=== PATIENT | male | born 1970 | race Caucasian/White ===

== ENCOUNTER 2017-08-29 06:19 | Day surgery (SDC) | payer BC ==
[~2017-08-29 06:19] MED LIST: Lactated Ringers 1,000 ML IV SCH
[2017-08-29] MEDS ORDERED: fentaNYL 100 MCG/2 ML SDV ONE (07:08)
[2017-08-29] MEDS ORDERED: Midazolam 1 MG/ML 2 ML SDV ONE (07:08)
[2017-08-29] MEDS ORDERED: Propofol 200 MG/20 ML SDV ONE ×2 (07:09→07:54)
[2017-08-29] MEDS ORDERED: Bupivacaine 0.25%/EPINEPHrine 1:200,000 30 ML SDV ONE (07:39)
--- NOTE | 2017-08-29 13:38 | OR ---
PREOPERATIVE DIAGNOSES: Rectal bleeding, family history of rectal cancer. POSTOPERATIVE DIAGNOSIS: Normal colonoscopic exam. PROCEDURE PROPOSED: Total flexible colonoscopy. PROCEDURE DONE: Total flexible colonoscopy. INDICATION: This is a 47-year-old gentleman, who comes in for his first colonoscopic exam. He has been off his Coumadin for a while and his INR yesterday was 1.4. TECHNIQUE: The patient was brought to the endoscopy suite, placed in left lateral decubitus position. He was sedated per MOLDING SUPERVISOR with propofol. The flexible video colonoscope was then passed transanally and under visualization advanced to the cecum. Examination revealed a normal ascending, transverse, descending, sigmoid, and rectal colon. There was no evidence of any polyps, diverticulosis, colitis, or other abnormalities, and the scope was then withdrawn. He tolerated the procedure well. FINAL IMPRESSION: 1. Normal colonoscopic exam. 2. Family history of rectal cancer. PLAN: The patient should consider a colonic surveillance every 5 years hereafter. He also has an anal tag that he is requesting to be removed. Please see a separate dictation for that. SCM: 08/29/2017 09:17:58 MODL: 08/29/2017 13:29:13 /[id number]
--- NOTE | 2017-08-29 14:13 | OR ---
PREOPERATIVE DIAGNOSIS: Large anal tag, symptomatic. POSTOPERATIVE DIAGNOSIS: Large anal tag, symptomatic. PROCEDURE PROPOSED: Excision of large external anal tag, 1.5 cm. PROCEDURE DONE: Excision of large external anal tag, 1.5 cm. CALL CENTER RECRUITER: Shannon. INDICATIONS: This is a 47-year-old gentleman with a symptomatic, problematic, large anal tag in the left lateral quadrant externally. It appears that this likely could be a source of some bleeding and is felt that it should be removed. TECHNIQUE: The patient was already sedated with propofol. After following a colonoscopy, the area was sterilely prepped with Betadine. Shannon, my college sports assistant, then retracted the buttocks and I was able to locally anesthetize the base of this polypoid mass. I then excised it with a 15 scalpel, used some battery operated cautery to obtain some hemostasis and then reapproximated the incision with a running 4-0 plain catgut suture. He tolerated the procedure well. Everything looked good and a gauze dressing was packed between the buttocks and he was taken back to day surgery in good condition. SCM: 08/29/2017 09:19:38 MODL: 08/29/2017 14:02:55 /[id number]
== END 2017-08-29 09:30 | disposition home or self-care (01) ==
LOC: VM.SDS 06:19
PROVIDERS: ATTEND Surgery
DX: K62.5 Hemorrhage of anus and rectum (principal); K64.4 Residual hemorrhoidal skin tags; F41.9 Anxiety disorder, unspecified; F32.9 Major depressive disorder, single episode, unspecified; G47.33 Obstructive sleep apnea (adult) (pediatric); E11.9 Type 2 diabetes mellitus without complications; E78.5 Hyperlipidemia, unspecified; E66.9 Obesity, unspecified; E03.9 Hypothyroidism, unspecified; F17.210 Nicotine dependence, cigarettes, uncomplicated; Z80.0 Family history of malignant neoplasm of digestive organs; Z68.37 Body mass index [BMI] 37.0-37.9, adult; Z79.01 Long term (current) use of anticoagulants; Z79.899 Other long term (current) drug therapy; Z88.0 Allergy status to penicillin
CPT/HCPCS: 36415; 45378; 82962; 85610; J2250; J2704; J3010; J7120

== ENCOUNTER 2019-03-06 22:33 | Emergency (ER) | payer BC ==
[2019-03-06] MEDS ORDERED: Ondansetron 4 MG/2 ML SDV IVPUSH ONE (22:47)
[2019-03-06] MEDS ORDERED: GI Cocktail Oral Solution 30 ML PO ONE (22:47)
[2019-03-06] MEDS ORDERED: Sodium Chloride 0.9% 10 ML Syringe FLUSH PRN (22:47)
[2019-03-06 23:19] LABS: CHLORIDE,CL 98 mmol/L (98-107); SODIUM,NA 136 mmol/L (136-145)
[2019-03-06 23:20] LABS: ANION GAP 18.3 mmol/L (10-20)
--- NOTE | 2019-03-06 23:55 | EDM.PDOC ---
ED HPI GENERAL MEDICAL PROBLEM - General Chief Complaint: General Stated Complaint: CHEST PAIN Time Seen by Provider: 03/06/19 22:40 Source of Information: Reports: Patient History Limitations: Reports: No Limitations, Intoxication - History of Present Illness INITIAL COMMENTS - FREE TEXT/NARRATIVE: patient comes in the emergency department with complaint of epigastric/chest discomfort. Patient states the pain started this morning is been consistent throughout the day has not been any worse or any better. He states that he presented emergency department only after his family had bothered him enough he did not want to listen to them any longer. He describes it as a sensation of the chest that goes up towards his trachea. It hurts if he takes a deep breath or if he tries to swallow saliva. Did have some issues eating food for he had no appetite. patient denies vomiting. Patient denies any shortness of breath, blurred vision, headache, edema in the lower extremities, or genitourinary concerns. The pain is less if he is lying back at about 45 degrees in relaxing; the pain is more after he eats or taking a deep breath. He also has difficulty lying flat.Denies any other concerns or complaints Onset: Today Quality: Reports: Ache, Burning, Dull Severity: Mild Improves with: Reports: Immobilization Worsens with: Reports: Breathing Associated Symptoms: Reports: No Other Symptoms - Related Data Allergies Allergy/AdvReac Type Severity Reaction Status Date / Time Penicillins Allergy Hives Verified 08/29/17 07:12 Home Meds: Home Meds Flecainide Acetate 150 mg PO DAILY 08/23/17 [History] Levothyroxine 25 mcg PO ACBREAKFAST 08/23/17 [History] Levothyroxine Sodium [Synthroid] 200 mcg PO ACBREAKFAST 08/23/17 [History] Metoprolol Succinate [Toprol XL] 200 mg PO DAILY 08/23/17 [History] Warfarin [Coumadin] 2.5 mg PO ONETIME 08/23/17 [History] amLODIPine [Norvasc] 2.5 mg PO DAILY 08/23/17 [History] buPROPion [Wellbutrin XL] 150 mg PO DAILY 08/23/17 [History] metFORMIN [Glucophage XR] 750 mg PO DAILY 08/23/17 [History] Past Medical History HEENT History: Reports: None Cardiovascular History: Reports: Arrhythmia, High Cholesterol, Hypertension Other Cardiovascular History: tachycardia induced cardiomyopathy. A-fib Respiratory History: Reports: Sleep Apnea Gastrointestinal History: Reports: Other (See Below) Other Gastrointestinal History: STATES FULLNESS TO BOWELS AND RECTUM Genitourinary History: Reports: None Musculoskeletal History: Reports: None Neurological History: Reports: None Psychiatric History: Reports: Anxiety, Depression Other Psychiatric History: alcohol abuse. obesity Endocrine/Metabolic History: Reports: Diabetes, Type II, Hypothyroidism Other Endocrine/Metabolic History: thyroid disease Hematologic History: Reports: Other (See Below) Other Hematologic History: polycythemia Immunologic History: Reports: None Oncologic (Cancer) History: Reports: None Dermatologic History: Reports: Other (See Below) Other Dermatologic History: HX bOIL TO RECTUM - Past Surgical History HEENT Surgical History: Reports: None Cardiovascular Surgical History: Reports: Cardiac Ablation Other Cardiovascular Surgeries/Procedures: cardioversion for A-fib GI Surgical History: Reports: None Male Surgical History: Reports: None Endocrine Surgical History: Reports: None Neurological Surgical History: Reports: None Musculoskeletal Surgical History: Reports: None Dermatological Surgical History: Reports: None Social & Family History - Caffeine Use Caffeine Use: Reports: Coffee ED ROS GENERAL - Review of Systems Review Of Systems: ROS reveals no pertinent complaints other than HPI. Constitutional: Reports: No Symptoms HEENT: Reports: No Symptoms Respiratory: Reports: No Symptoms Cardiovascular: Reports: No Symptoms Endocrine: Reports: No Symptoms GI/Abdominal: Reports: No Symptoms : Reports: No Symptoms Musculoskeletal: Reports: No Symptoms Skin: Reports: No Symptoms Neurological: Reports: No Symptoms Psychiatric: Reports: No Symptoms Hematologic/Lymphatic: Reports: No Symptoms ED EXAM, GENERAL - Physical Exam Exam: See Below Exam Limited By: Intoxication General Appearance: Alert, WD/WN, No Apparent Distress Throat/Mouth: Normal Inspection, Normal Lips, Normal Teeth, Normal Voice Head: Atraumatic, Normocephalic Neck: Normal Inspection, Supple, Non-Tender Respiratory/Chest: No Respiratory Distress, Lungs Clear, No Accessory Muscle Use , Chest Non-Tender Cardiovascular: Normal Peripheral Pulses, Regular Rate, Rhythm GI/Abdominal: Normal Bowel Sounds, Soft, No Distention, No Abnormal Bruit, Tender (epigastric ) Back Exam: Normal Inspection, Full Range of Motion Extremities: Normal Inspection, Normal Range of Motion, No Pedal Edema, Normal Capillary Refill Neurological: Alert, Oriented, Normal Gait Psychiatric: Normal Affect, Normal Mood Skin Exam: Warm, Dry, Intact, Normal Color Course - Orders/Labs/Meds Orders: Active Orders 24 hr Category Date Time Status EKG Documentation Completion [RC] STAT Care 03/06/19 22:47 Active Chest 1V Frontal [CR] Stat Exams 03/06/19 22:48 Taken Sodium Chloride 0.9% [Saline Flush] Med 03/06/19 22:47 Active 10 ml FLUSH ASDIRECTED PRN Peripheral IV Insertion Adult [OM.PC] Stat Oth 03/06/19 22:47 Ordered Medication Orders Sodium Chloride (Saline Flush) 10 ml FLUSH ASDIRECTED PRN PRN Reason: Keep Vein Open Labs: Laboratory Tests 03/06/19 03/06/19 03/06/19 Range/Units 22:47 22:47 22:47 WBC 12.7 H (4.0-10.0) x10^3/uL RBC 5.03 (4.5-6.0) x10^6/uL Hgb 17.2 (14.0-18.0) g/dL Hct 47.8 (40.0-52.0) % MCV 95.0 H (78.0-93.0) fL MCH 34.2 H (26.0-32.0) pg MCHC 36.0 (32.0-36.0) g/dL RDW Coeff of [place] 11.7 (10.0-15.0) % Plt Count 195 (130-400) x10^3/uL Neut % (Auto) 68.0 (50.0-80.0) % Lymph % (Auto) 21.0 L (25.0-50.0) % [place] % (Auto) 9.9 (2.0-11.0) % Eos % (Auto) 0.8 (0.0-4.0) % Baso % (Auto) 0.3 (0.2-1.2) % PT 16.7 H (10.0-12.8) SEC INR 1.5 L (2.0-3.5) Sodium 136 (136-145) mmol/L Potassium 4.3 (3.5-5.1) mmol/L Chloride 98 (98-107) mmol/L Carbon Dioxide 24 (21-32) mmol/L Anion Gap 18.3 (10-20) mmol/L BUN 13 (7-18) mg/dL Creatinine 1.0 (0.70-1.30) mg/dL Est Cr Clr Drug Dosing TNP Estimated GFR (MDRD) > 60 Glucose 194 H (74-106) mg/dL Calcium 9.1 (8.5-10.1) mg/dL Corrected Calcium 9.50 (8.5-10.1) mg/dL Total Bilirubin 1.8 H (0.2-1.0) mg/dL AST 33 (15-37) U/L ALT 39 (16-63) U/L Alkaline Phosphatase 90 (46-116) U/L POC Troponin I (0.00-0.08) ng/mL Total Protein 7.3 (6.4-8.2) g/dL Albumin 3.5 (3.4-5.0) g/dL Globulin 3.8 Albumin/Globulin Ratio 0.92 03/06/19 Range/Units 22:52 WBC (4.0-10.0) x10^3/uL RBC (4.5-6.0) x10^6/uL Hgb (14.0-18.0) g/dL Hct (40.0-52.0) % MCV (78.0-93.0) fL MCH (26.0-32.0) pg MCHC (32.0-36.0) g/dL RDW Coeff of [place]yn (10.0-15.0) % Plt Count (130-400) x10^3/uL Neut % (Auto) (50.0-80.0) % Lymph % (Auto) (25.0-50.0) % [place] % (Auto) (2.0-11.0) % Eos % (Auto) (0.0-4.0) % Baso % (Auto) (0.2-1.2) % PT (10.0-12.8) SEC INR (2.0-3.5) Sodium (136-145) mmol/L Potassium (3.5-5.1) mmol/L Chloride (98-107) mmol/L Carbon Dioxide (21-32) mmol/L Anion Gap (10-20) mmol/L BUN (7-18) mg/dL Creatinine (0.70-1.30) mg/dL Est Cr Clr Drug Dosing Estimated GFR (MDRD) Glucose (74-106) mg/dL Calcium (8.5-10.1) mg/dL Corrected Calcium (8.5-10.1) mg/dL Total Bilirubin (0.2-1.0) mg/dL AST (15-37) U/L ALT (16-63) U/L Alkaline Phosphatase (46-116) U/L POC Troponin I 0.00 (0.00-0.08) ng/mL Total Protein (6.4-8.2) g/dL Albumin (3.4-5.0) g/dL Globulin Albumin/Globulin Ratio Meds: Medications Generic Name Dose Route Start Last Admin Trade Name Freq PRN Reason Stop Dose Admin Sodium Chloride 10 ml 03/06/19 22:47 Saline Flush FLUSH ASDIRECTED PRN Keep Vein Open Discontinued Medications Generic Name Dose Route Start Last Admin Trade Name Freq PRN Reason Stop Dose Admin Al Hydroxide/Mg Hydroxide 30 ml 03/06/19 22:47 Gi Cocktail PO 03/06/19 22:48 ONETIME ONE Ondansetron HCl 4 mg 03/06/19 22:47 Zofran IVPUSH 03/06/19 22:48 ONETIME ONE Departure - Departure Time of Disposition: 23:50 Disposition: Home, Self-Care 01 Condition: Good Clinical Impression: GERD (gastroesophageal reflux disease) Qualifiers: Esophagitis presence: esophagitis presence not specified Qualified Code(s): K21.9 - Gastro-esophageal reflux disease without esophagitis - Discharge Information *PRESCRIPTION DRUG MONITORING PROGRAM REVIEWED*: Not Applicable *COPY OF PRESCRIPTION DRUG MONITORING REPORT IN PATIENT SYLVIA: Not Applicable Instructions: Food Choices for Gastroesophageal Reflux Disease, Adult, Indigestion, [id number] Referrals: Jorge Ba MD [Primary Care Provider] - Forms: ED Department Discharge Additional Instructions: 1. rest 2. increase your water intake 3. It is recommended that you take Protonix daily for 4 weeks 4. Follow up as need be 5. Avoid spicy foods 6. Call with any questions or concerns - Problem List Review Problem List Initiated/Reviewed/Updated: Yes - My Orders Last 24 Hours: My Active Orders 03/06/19 22:47 EKG Documentation Completion [RC] STAT Sodium Chloride 0.9% [Saline Flush] 10 ml FLUSH ASDIRECTED PRN Peripheral IV Insertion Adult [OM.PC] Stat 03/06/19 22:48 Chest 1V Frontal [CR] Stat - Assessment/Plan Last 24 Hours: My Active Orders 03/06/19 22:47 EKG Documentation Completion [RC] STAT Sodium Chloride 0.9% [Saline Flush] 10 ml FLUSH ASDIRECTED PRN Peripheral IV Insertion Adult [OM.PC] Stat 03/06/19 22:48 Chest 1V Frontal [CR] Stat Assessment:: 1. chest pain/epigastric-GERD Plan: 1. EKG completed in the ER and results reviewed with patient 2. Labs completed in ER. Results reviewed with patient 3. Chest x-ray completed in the ER. Results reviewed with patient 4. IV started in the ER 5. zofran IV given in the ER for nausea 6. GI cocktail given in the ER 7. All tests discussed with patient and the family. Patient is advised to reduce his alcohol intake and refrain if possible. Patient's also advised to take daily Protonix for the next 4 weeks. He is also encouraged to follow up with his primary PCP for further investigation regarding his esophageal reflux. 8. all questions and concerns were addressed prior to discharge
--- NOTE | 2019-03-07 08:46 | CR ---
[id number] RAD/RAD Chest PA or AP 1V EXAM: RAD Chest PA or AP 1V INDICATION: CHEST PAIN. COMPARISON: None. DISCUSSION: Cardiomediastinal silhouette is prominent. No infiltrate, effusion, pneumothorax, or edema. Low lung volumes associated vascular crowding. IMPRESSION: No acute cardiopulmonary abnormality. Deni Saxena DO 03/07/19 0844 Thank you for allowing us to participate in the care of your patient.
== END 2019-03-06 23:57 | disposition home or self-care (01) ==
LOC: VM.ED 22:33
DX: K21.9 Gastro-esophageal reflux disease without esophagitis (principal); I10 Essential (primary) hypertension; F41.9 Anxiety disorder, unspecified; F32.9 Major depressive disorder, single episode, unspecified; E11.9 Type 2 diabetes mellitus without complications; E03.9 Hypothyroidism, unspecified; E66.9 Obesity, unspecified; Z79.899 Other long term (current) drug therapy; Z79.01 Long term (current) use of anticoagulants; Z88.0 Allergy status to penicillin
CPT/HCPCS: 71045; 80053; 84484; 85025; 85610; 93005; 96374; 99285; A9270; J2405

== ENCOUNTER 2024-02-14 08:12 | Emergency (ER) | payer OTHER ==
[2024-02-14] MEDS ORDERED: Sodium Chloride 0.9% 10 ML Syringe FLUSH PRN (08:27)
[2024-02-14 08:37] LABS: BASOPHILS PERCENT AUTO 0.2 % (0.2-1.2); EOSINOPHILS ABSOLUTE AUTO 0.1 x10^3/uL (0.0-0.5); HEMATOCRIT 47.4 % (40.0-52.0); HEMOGLOBIN 16.6 g/dL (14.0-18.0); IMMATURE GRAN ABSOLUTE AUTO 0.01 x10^3/uL (0.00-0.07); LYMPHOCYTES ABSOLUTE AUTO 1.9 x10^3/uL (1.0-4.8); LYMPHOCYTES PERCENT AUTO 20.3 % (25.0-50.0); MEAN CORPUSCULAR HEMOGLOBIN 32.3 pg (26.0-32.0); MEAN CORPUSCULAR VOLUME 92.2 fL (78.0-93.0); MONOCYTES ABSOLUTE AUTO 0.9 x10^3/uL (0.0-0.8); MONOCYTES PERCENT AUTO 9.2 % (2.0-11.0); NEUTROPHILS ABSOLUTE AUTO 6.5 x10^3/uL (1.8-7.7); NEUTROPHILS PERCENT AUTO 69.2 % (50.0-80.0); PLATELET COUNT,PLT 197 x10^3/uL (130-400); RED BLOOD CELL COUNT 5.14 x10^6/uL (4.5-6.0); WHITE BLOOD CELL COUNT,WBC 9.3 x10^3/uL (4.0-10.0)
[2024-02-14 08:59] LABS: A/G RATIO 1.15; ALANINE AMINOTRANSFERASE,ALT 31 U/L (16-63); ALBUMIN 3.9 g/dL (3.4-5.0); ALKALINE PHOSPHATASE 66 U/L (46-116); ANION GAP 13.3 mmol/L (5-15); ASPARTATE AMNIOTRANSFERASE,AST 22 U/L (15-37); BILIRUBIN TOTAL 0.9 mg/dL (0.2-1.0); BLOOD UREA NITROGEN,BUN 14 mg/dL (7-18); C-REACTIVE PROTEIN < 0.50 mg/dL (<=0.50); CALCIUM 8.9 mg/dL (8.5-10.1); CARBON DIOXIDE,CO2 28 mmol/L (21-32); CHLORIDE,CL 104 mmol/L (98-107); EST CRCL DRUG DOSING (CG) 93.77 mL/min; ESTIMATED GFR 90 mL/min (>=60); GLUCOSE RANDOM 191 mg/dL (70-99); MAGNESIUM 1.8 mg/dL (1.8-2.4); POTASSIUM,K 4.3 mmol/L (3.5-5.1); PRO B-TYPE NATRIUR PEPT,BNPPRO 578 pg/mL (<=125); PROTEIN TOTAL,TP 7.3 g/dL (6.4-8.2); SODIUM,NA 141 mmol/L (136-145); TSH ULTRASENSITIVE 0.589 uIU/mL (0.358-3.74)
== END 2024-02-14 09:25 | disposition home or self-care (01) ==
LOC: VM.ED 08:12
DX: R07.89 Other chest pain (principal); I10 Essential (primary) hypertension; I48.91 Unspecified atrial fibrillation; E78.00 Pure hypercholesterolemia, unspecified; E11.9 Type 2 diabetes mellitus without complications; E03.9 Hypothyroidism, unspecified; F17.210 Nicotine dependence, cigarettes, uncomplicated; Z79.899 Other long term (current) drug therapy; Z88.0 Allergy status to penicillin; Z79.01 Long term (current) use of anticoagulants
CPT/HCPCS: 71045; 80053; 83735; 83880; 84443; 84484; 85025; 85379; 86140; 93005; 93010; 99284; 99285